=== PATIENT | female | born 1980 | race Caucasian/White ===

== ENCOUNTER 2016-12-12 06:02 | Emergency (ER) | payer BC, OTHER ==
--- NOTE | 2016-12-12 07:20 | ED NURSING NOTES ---
Clinical Report - Nurses [facility] [address] [place] [address] 12/12/2016 6:04 Patient: BERNADETTE SILVA TRIAGE Triage time 06:08. Acuity: LEVEL 3. Chief Complaint: (L flank pain). 06:16 12/12/16. Alert. No acute distress. PARADISE COMA SCORE: Paradise Coma Scale: 15- eyes open spontaneously (4); best verbal response- oriented x 4 (5); best motor response- obeys commands (6). --06:16 Kianna Meyers R.N. 06:15 12/12/16. BP: 94/66 taken on the left arm, while sitting. HR: 68. O2 saturation: 96%. Temp: 97.4 F. Pain level now: 11/26. --06:16 Kianna Meyers R.N. Weight: 61.2 kg stated. Height/Length: 62 inches Per Patient. BMI: 24.7. --06:15 Kianna Meyers R.N. Medications Deblitane Oral. --06:12 Kianna Meyers R.N. Escitalopram Oxalate Oral. --06:12 Kianna Meyers R.N. LORazepam Oral. --06:13 Kianna Meyers R.N. Allergies None. --06:13 Kianna Meyers R.N. History Arrived by private vehicle. Historian: patient. Primary physician (Dr Garay). This started today. ( Patient states she began experiencing urgency/frequency w/ urination yesterday, and was woken up around 4am by L sided flank pain.). ( frequency, urgency w/ urination). PAST MEDICAL HX: Immunizations: up-to-date. Last normal menstrual period was 3 weeks ago. Denies current . SOCIAL HX: Never smoker. Occasional alcohol use. No drug use. FALL RISK ASSESSMENT: Fall risk assessment completed. No fall risk identified. NUTRITIONAL RISK ASSESSMENT: The nutritional risk assessment revealed no deficiencies. FUNCTIONAL ASSESSMENT: Functional assessment: no impairments noted. LEARNING NEEDS ASSESSMENT: The learning needs assessment revealed no barriers. SKIN INTEGRITY ASSESSMENT: Skin integrity risk assessment completed. No skin integrity risk identified. --06:16 Kianna Meyers R.N. PROBLEMS: Elevated Cholesterol. Depression. Anxiety Reaction. --06:13 Kianna Meeyrs R.N. ADDITIONAL SURGERIES: Knee Surgery. --06:13 Kianna Meyers R.N. Interventions ID band on patient. To treatment room. --06:16 Kianna Meyers R.N. PHYSICAL ASSESSMENT 06:12. Ambulatory to room. GENERAL / NEURO / PSYCH: Alert. Oriented X 4. Appears in pain. HEENT: Mucous membranes are pink. RESPIRATORY: Respirations not labored. CVS: Capillary refill less than 2 seconds. GI / : Abdomen soft. Abdominal tenderness (L side tenderness). SKIN: Skin is warm and dry. --06:41 Kianna Meyers R.N. NURSING PROGRESS NOTES 06:22 12/12/2016 Site #1 started via IV in the right antecubital space with an 20g angiocath; one attempt. Blood drawn: rainbow set. Labeled in the presence of the patient and sent to the lab. Saline lock flushed with 10 mL saline. --06:37 Kianna Meyers R.N. 06:32 12/12/2016 Started bag #1 1000 mL IV Fluids IV NS (Saline); bolus of 500 mL over 30 minute(s) then at 125 mL/hr over 4 hour(s) via site #1 via IV pump. Allergies verified and confirmed 5 rights. IV patency established. IV site checked: no pain, redness, or swelling. IV flushed thoroughly pre- and post-medication administration. Completed per protocol. --06:37 Kianna Meyers R.N. 06:15. Patient gowned. Call light placed in reach. Side rails up x 1. Bed placed in lowest position. Brakes of bed on. Patient ready for evaluation- chart flagged and notification provided. --06:39 Kianna Meyers R.N. 07:17 12/12/16. Care transferred and report given (to GIO Baum and GIO Valdivia). --07:17 Kianna Meyers R.N. 07:33 12/12/2016 Levaquin (Levofloxacin) PO Tablets 750 mg given. Allergies verified and confirmed 5 rights. --07:33 Sarika Luna R.N. 07:33 12/12/2016 Zofran (Ondansetron HCl) IVP 4 mg given over 2 minute(s) via site #1. Allergies verified and confirmed 5 rights. IV patency established. IV site checked: no pain, redness, or swelling. IV flushed thoroughly pre- and post-medication administration. IVP given by RN. --07:33 Sarika Luna R.N. 07:34 12/12/2016 Dilaudid (HYDROmorphone HCl PF) IVP 0.5 mg given over 1 minute(s) via site #1. Allergies verified, confirmed 5 rights and sedative warning given to the patient. IV patency established. IV site checked: no pain, redness, or swelling. IV flushed thoroughly pre- and post-medication administration. IVP given by RN. --07:34 Sariak Luna R.N. 07:34 12/12/16. Reassessment after fluids administered. She is calm and resting quietly. Overall patient status is the same- she states feels the same. SKIN: Skin is warm and dry. --07:34 Sarika Luna R.N. 07:47 12/12/2016 IV Fluids IV NS Discontinued: bag #1. Total amount infused: 850 mL. IV patency established. IV site checked: no pain, redness, or swelling. IV flushed thoroughly. --07:47 Ankur Ledesma R.N. DISPOSITION / DISCHARGE 07:47 12/12/2016 Site #1 removed upon discharge. Catheter intact. Bandage applied. --07:47 Ankur Ledesma R.N. 07:48 12/12/16. Condition at departure: improved. The goals identified in the patient's plan of care were met. No learning barriers present. Discharge instructions provided and reviewed with the patient. Reviewed warnings. Reviewed medication(s). Treatments reviewed. Patient verbalized understanding. Written instructions provided in Tajik. The patient was discharged by the physician. She was discharged home and accompanied by incident handler. She left the Emergency Department ambulatory and via private vehicle. Kitchen Food Assembler driving. FALL RISK ASSESSMENT: Fall risk assessment completed. No fall risk identified. --07:48 Ankur Ledesma R.N. 07:46 12/12/16. BP: 100/68. HR: 70. RR: 14. O2 saturation: 99% on room air. Temp: 98.1 F (oral). --07:48 Ankur Ledesma R.N. 07:48 12/12/16. Departure time: 07:48. --07:48 Ankur Ledesma R.N. Locked/Released at 12/12/2016 7:50 by Ankur Ledesma R.N.
--- NOTE | 2016-12-12 07:20 | ED ORDER SUMMARY ---
..... Patient: BERNADETTE SILVA OrderSheet [facility] VisitID: [id number] [place] [address] 36y, F Registration Date/Time: 12/12/2016 ORDER SHEET Weight: 61.2 kg (stated) Allergies: None GENERAL ORDERS: CBC w Diff Urgent (06:07 12/12/2016 Piero CLEMENTE) (Ack 6:09 CHagerty ER Drilling Inspector) (Collected 6:29 RMarsden R.N.) (6:38 RMarsden R.N.) CMP Urgent (06:07 12/12/2016 Piero CLEMENTE) (Ack 6:09 Regla ER Drilling Inspector) (Collected 6:29 RMarsden R.N.) (6:54 RMarsden R.N.) UA-Culture if indicated Urgent (06:07 12/12/2016 Piero CLEMENTE) (Ack 6:09 Regla ER Drilling Inspector) (Collected 6:19 RMarsden R.N.) (6:29 RMarsden R.N.) Amylase Urgent (06:07 12/12/2016 Piero CLEMENTE) (Ack 6:09 Regla ER Drilling Inspector) (Collected 6:29 RMarsden R.N.) (6:54 RMarsden R.N.) Lipase Urgent (06:07 12/12/2016 Piero CLEMENTE) (Ack 6:09 Regla ER Drilling Inspector) (Collected 6:29 RMarsden R.N.) (6:54 RMarsden R.N.) Urine Urgent (06:07 12/12/2016 Piero CLEMENTE) (Ack 6:09 Regla ER Drilling Inspector) (Collected 6:29 RMarsden R.N.) (6:38 RMarsden R.N.) MEDICATION ORDERS: Levaquin PO 750 mg (NOW) (07:15 12/12/2016 Piero CLEMENTE) (Ack 7:17 Hodan R.N.) (7:33 Hodan R.N.) IV FLUIDS: IV NS : initial bolus 500 mL (1000 mL/hr), then 125 mL/hr for 4h (NOW); Urgent (06:07 12/12/2016 Piero CLEMENTE) (Ack 6:29 Olivia R.N.) (6:37 Olivia R.N.) Zofran IV 4 mg (NOW) (07:15 12/12/2016 Piero CLEMENTE) (Ack 7:17 Hodan R.N.) (7:33 Hodan R.N.) Dilaudid IV 0.5 mg (HIGH ALERT MEDICATION, NOW) (07:15 12/12/2016 Piero CLEMENTE) (Ack 7:17 Hodan R.N.) (7:34 Hodan R.N.) ORDER SHEET NOTES: [Electronically signed by Ankur Ledesma R.N. (07:50 12/12/2016)] [Electronically signed by Murray Nguyen MD (09:05 12/29/2016)] [Electronically locked/signed by Ankur Ledesma R.N. (07:50 12/12/2016)]
--- NOTE | 2016-12-12 07:20 | ED CLINICAL REPORT ---
Clinical Report - Physicians/Mid Levels [facility] [address] [place] [address] 12/12/2016 6:04 Patient: BERNADETTE SILVA Time Seen: 06:07. Arrived- By private vehicle. Historian- patient. HISTORY OF PRESENT ILLNESS Chief Complaint: FLANK PAIN. At its maximum, severity described as severe. When seen in the E.D., severity described as moderate. This started yesterday and is still present. It was gradual in onset and has been constant and waxing/waning. It is described as "pain" and it is described as located in the left abdomen and the left flank. The patient has had nausea. No vomiting or diarrhea. (she began experiencing urgency/frequency w/ urination yesterday, and was woken up around 4am by L sided flank pain.). REVIEW OF SYSTEMS Last normal menstrual period- 3 weeks ago. She has had chills and nausea and experienced sweats. No fever, calf pain, chest pain, cough or difficulty breathing. No pedal edema, palpitations, black stools, bloody stools or constipation. No diarrhea or vomiting. All systems otherwise negative, except as recorded above. SOCIAL HISTORY Never smoker. Occasional alcohol use. No drug use. FAMILY HISTORY Denies family medical history. ADDITIONAL NOTES The nursing notes have been reviewed. PHYSICAL EXAM Vital Signs: 12/12/2016 06:15 BP: 94/66. HR: 68. O2 saturation: 96%. Temp: 97.4 F. Pain level now: 11/26. Have been reviewed. Appearance: Alert. Eyes: Pupils equal, round and reactive to light. ENT: Pharynx normal. Neck: Normal inspection. Neck supple. CVS: Normal heart rate and rhythm. Heart sounds normal. Respiratory: No respiratory distress. Breath sounds normal. Abdomen: Soft and nontender. Bowel sounds normal. No organomegaly. No mass. Back: Normal inspection. Mild CVA tenderness on the left. Skin: Skin warm and dry. Normal skin color. Normal skin turgor. Extremities: Extremities exhibit normal ROM. No calf tenderness. No lower extremity edema. LABS, X-RAYS, AND EKG Laboratory Tests: UA-Culture if indicated: (TINY: 12/12/2016 06:17) ( [facility] 12/12/[facility] 06:33) Final results Test Result Flag Units (Reference) URINE COLOR YELLOW URINE APPEARANCE HAZY URINE GLUCOSE NEGATIVE (NEGATIVE) URINE BILIRUBIN NEGATIVE (NEGATIVE) URINE KETONE NEGATIVE (NEGATIVE) URINE SPECIFIC GRAVITY 1.020 (1.010-1.030) URINE PH 7.0 (5.0-8.0) URINE PROTEIN 1+ (NEGATIVE) URINE UROBILINOGEN 0.2 EU/dL (0.2-1.0) URINE NITRITE NEGATIVE (NEGATIVE) URINE BLOOD 3+ (NEGATIVE) URINE LEUK ESTERASE POSITIVE (NEGATIVE) URINE RBC 5-10 rbc/hpf (0-1) URINE WBC 15-25 wbc/hpf (0-1) URINE EPITHELIAL CELLS 1-3 EPI/hpf (0-5) URINE BACTERIA MODERATE (2+ TO 3+) (NONE SEEN) URINE COMMENT CULTURE INDICATED URINE CULTURES ARE SET-UP BASED ON THE FOLLOWING CRITERIA:POSITIVE NITRITEPOSITIVE LEUKOCYTE ESTERASEGREATER THAN 10 WHITE BLOOD CELLSMODERATE (2+) OR GREATER BACTERIA Urine: (TINY: 12/12/2016 06:17) ( [facility] 12/12/2016 06:29) Final results Test Result Flag Units (Reference) URINE NEGATIVE CBC w Diff: (TINY: 12/12/2016 06:26) ( [facility] 12/12/2016 06:35) Final results Test Result Flag Units (Reference) WHITE BLOOD COUNT 10.0 K/uL (4.5-11.5) RED BLOOD COUNT 4.54 M/uL (4.00-5.20) HEMOGLOBIN 13.6 gm/dL (12.0-16.0) HEMATOCRIT 40.9 % (36.0-46.0) MEAN CELL VOLUME 90 fL (80-100) MEAN CORPUSCULAR HGB 30 pg (26-34) MEAN CORPUSCULAR HGB CONC 33 g/dL (31-37) RED CELL DISTRIBUTION WIDTH 13.9 % (11.6-14.8) PLATELET COUNT 223 K/uL (150-400) NEUTROPHIL % 67.7 % (50-75) LYMPH % 24.3 L % (25-40) MONO % 6.1 % (3-14) EOSINOPHIL % 1.5 % (0-4) BASOPHIL % 0.4 % (0-2) CMP: (TINY: 12/12/2016 06:26) ( MsgRcvd 12/12/2016 06:47) Final results Test Result Flag Units (Reference) GLUCOSE 90 mg/dL (70-110) BUN 16 mg/dL (7-18) CREATININE 0.9 mg/dL (0.6-1.3) Estimated GFR >60 mL/min Estimated GFR- >60 mL/min Note: Persistent reduction over 3 months in eGFR<60 mL/min/1.73 m2 defines CKD. Patients with eGFR values>=60 mL/min/1.73 m2 may also have CKD if evidence ofpersistent proteinuria. Additional information may be foundat www.kidney.org. SODIUM 140 mmol/L (136-145) POTASSIUM 4.2 mmol/L (3.5-5.1) CHLORIDE 105 mmol/L (98-107) CARBON DIOXIDE 25 mmol/L (21-32) CALCIUM 8.6 mg/dL (8.5-10.1) TOTAL PROTEIN 7.3 g/dL (6.4-8.2) ALBUMIN 3.7 g/dL (3.3-5.0) BILIRUBIN, TOTAL 0.3 mg/dL (0.0-1.0) ALKALINE PHOSPHATASE 57 U/L (46-116) AST (SGOT) 8 L U/L (15-37) ALT (SGPT) 17 U/L (12-78) LIPASE 177 U/L (73-393) AMYLASE 40 U/L (25-115) . PROGRESS AND PROCEDURES Course of Care: Patient is stable. Patient/family counseled. Old medical records ordered. Old records unavailable. Disposition: Discharged. Condition: stable. CLINICAL IMPRESSION Acute pyelonephritis INSTRUCTIONS No driving or operating machinery while taking medication. Sedative medication was given during your visit. Drink plenty of fluids. No alcohol. Warnings: Further evaluation is necessary. GENERAL WARNINGS: Return or contact your physician immediately if your condition worsens or changes unexpectedly, if not improving as expected, or if other problems arise. Your Current Medications: CONTINUE TAKING THE FOLLOWING MEDICATIONS: Deblitane Oral. Escitalopram Oxalate Oral. LORazepam Oral. Prescription Medications: Hydrocodone/APAP 5mg/325mg: take 1 to 2 orally every 6 hours as needed for pain. Dispense fifteen (15). No refills. Zofran 4 mg: Take 1 orally every six hours as needed for nausea/vomiting. Dispense ten (10). No refills. Substitution is permissible. Cipro 500 mg: take 1 tab orally every 12 hours for 10 days. Dispense twenty (20). No refills. Substitution is permissible. (18 pills to finish the course started in the ER. Start this in the morning on December 13 as discussed) Follow-up: Follow up with your doctor Dr Garay in five days. Call for the next available appointment. Understanding of the discharge instructions verbalized by patient. (Electronically signed by Murray Nguyen MD 12/29/2016 9:05)
--- NOTE | 2016-12-12 07:20 | ED CLINICAL REPORT ---
Clinical Report - Physicians/Mid Levels [facility] [address] [place] [address] 12/12/2016 6:04 Patient: BERNADETTE SILVA Time Seen: 06:07. Arrived- By private vehicle. Historian- patient. HISTORY OF PRESENT ILLNESS Chief Complaint: FLANK PAIN. At its maximum, severity described as severe. When seen in the E.D., severity described as moderate. This started yesterday and is still present. It was gradual in onset and has been constant and waxing/waning. It is described as "pain" and it is described as located in the left abdomen and the left flank. The patient has had nausea. No vomiting or diarrhea. (she began experiencing urgency/frequency w/ urination yesterday, and was woken up around 4am by L sided flank pain.). REVIEW OF SYSTEMS Last normal menstrual period- 3 weeks ago. She has had chills and nausea and experienced sweats. No fever, calf pain, chest pain, cough or difficulty breathing. No pedal edema, palpitations, black stools, bloody stools or constipation. No diarrhea or vomiting. All systems otherwise negative, except as recorded above. SOCIAL HISTORY Never smoker. Occasional alcohol use. No drug use. FAMILY HISTORY Denies family medical history. ADDITIONAL NOTES The nursing notes have been reviewed. PHYSICAL EXAM Vital Signs: 12/12/2016 06:15 BP: 94/66. HR: 68. O2 saturation: 96%. Temp: 97.4 F. Pain level now: 11/26. Have been reviewed. Appearance: Alert. Eyes: Pupils equal, round and reactive to light. ENT: Pharynx normal. Neck: Normal inspection. Neck supple. CVS: Normal heart rate and rhythm. Heart sounds normal. Respiratory: No respiratory distress. Breath sounds normal. Abdomen: Soft and nontender. Bowel sounds normal. No organomegaly. No mass. Back: Normal inspection. Mild CVA tenderness on the left. Skin: Skin warm and dry. Normal skin color. Normal skin turgor. Extremities: Extremities exhibit normal ROM. No calf tenderness. No lower extremity edema. LABS, X-RAYS, AND EKG Laboratory Tests: UA-Culture if indicated: (TINY: 12/12/2016 06:17) ( [facility] 12/12/2016 06:33) Final results Test Result Flag Units (Reference) URINE COLOR YELLOW URINE APPEARANCE HAZY URINE GLUCOSE NEGATIVE (NEGATIVE) URINE BILIRUBIN NEGATIVE (NEGATIVE) URINE KETONE NEGATIVE (NEGATIVE) URINE SPECIFIC GRAVITY 1.020 (1.010-1.030) URINE PH 7.0 (5.0-8.0) URINE PROTEIN 1+ (NEGATIVE) URINE UROBILINOGEN 0.2 EU/dL (0.2-1.0) URINE NITRITE NEGATIVE (NEGATIVE) URINE BLOOD 3+ (NEGATIVE) URINE LEUK ESTERASE POSITIVE (NEGATIVE) URINE RBC 5-10 rbc/hpf (0-1) URINE WBC 15-25 wbc/hpf (0-1) URINE EPITHELIAL CELLS 1-3 EPI/hpf (0-5) URINE BACTERIA MODERATE (2+ TO 3+) (NONE SEEN) URINE COMMENT CULTURE INDICATED URINE CULTURES ARE SET-UP BASED ON THE FOLLOWING CRITERIA:POSITIVE NITRITEPOSITIVE LEUKOCYTE ESTERASEGREATER THAN 10 WHITE BLOOD CELLSMODERATE (2+) OR GREATER BACTERIA Urine: (TINY: 12/12/2016 06:17) ( [facility] 12/12/2016 06:29) Final results Test Result Flag Units (Reference) URINE NEGATIVE CBC w Diff: (TINY: 12/12/2016 06:26) ( [facility] 12/12/2016 06:35) Final results Test Result Flag Units (Reference) WHITE BLOOD COUNT 10.0 K/uL (4.5-11.5) RED BLOOD COUNT 4.54 M/uL (4.00-5.20) HEMOGLOBIN 13.6 gm/dL (12.0-16.0) HEMATOCRIT 40.9 % (36.0-46.0) MEAN CELL VOLUME 90 fL (80-100) MEAN CORPUSCULAR HGB 30 pg (26-34) MEAN CORPUSCULAR HGB CONC 33 g/dL (31-37) RED CELL DISTRIBUTION WIDTH 13.9 % (11.6-14.8) PLATELET COUNT 223 K/uL (150-400) NEUTROPHIL % 67.7 % (50-75) LYMPH % 24.3 L % (25-40) MONO % 6.1 % (3-14) EOSINOPHIL % 1.5 % (0-4) BASOPHIL % 0.4 % (0-2) CMP: (TINY: 12/12/2016 06:26) ( MsgRcvd 12/12/2016 06:47) Final results Test Result Flag Units (Reference) GLUCOSE 90 mg/dL (70-110) BUN 16 mg/dL (7-18) CREATININE 0.9 mg/dL (0.6-1.3) Estimated GFR >60 mL/min Estimated GFR- >60 mL/min Note: Persistent reduction over 3 months in eGFR<60 mL/min/1.73 m2 defines CKD. Patients with eGFR values>=60 mL/min/1.73 m2 may also have CKD if evidence ofpersistent proteinuria. Additional information may be foundat www.kidney.org. SODIUM 140 mmol/L (136-145) POTASSIUM 4.2 mmol/L (3.5-5.1) CHLORIDE 105 mmol/L (98-107) CARBON DIOXIDE 25 mmol/L (21-32) CALCIUM 8.6 mg/dL (8.5-10.1) TOTAL PROTEIN 7.3 g/dL (6.4-8.2) ALBUMIN 3.7 g/dL (3.3-5.0) BILIRUBIN, TOTAL 0.3 mg/dL (0.0-1.0) ALKALINE PHOSPHATASE 57 U/L (46-116) AST (SGOT) 8 L U/L (15-37) ALT (SGPT) 17 U/L (12-78) LIPASE 177 U/L (73-393) AMYLASE 40 U/L (25-115) . PROGRESS AND PROCEDURES Course of Care: Patient is stable. Patient/family counseled. Old medical records ordered. Old records unavailable. Disposition: Discharged. Condition: stable. CLINICAL IMPRESSION Acute pyelonephritis INSTRUCTIONS No driving or operating machinery while taking medication. Sedative medication was given during your visit. Drink plenty of fluids. No alcohol. Warnings: Further evaluation is necessary. GENERAL WARNINGS: Return or contact your physician immediately if your condition worsens or changes unexpectedly, if not improving as expected, or if other problems arise. Your Current Medications: CONTINUE TAKING THE FOLLOWING MEDICATIONS: Deblitane Oral. Escitalopram Oxalate Oral. LORazepam Oral. Prescription Medications: Hydrocodone/APAP 5mg/325mg: take 1 to 2 orally every 6 hours as needed for pain. Dispense fifteen (15). No refills. Zofran 4 mg: Take 1 orally every six hours as needed for nausea/vomiting. Dispense ten (10). No refills. Substitution is permissible. Cipro 500 mg: take 1 tab orally every 12 hours for 10 days. Dispense twenty (20). No refills. Substitution is permissible. (18 pills to finish the course started in the ER. Start this in the morning on December 13 as discussed) Follow-up: Follow up with your doctor Dr Garay in five days. Call for the next available appointment. Understanding of the discharge instructions verbalized by patient. (Electronically signed by Murray Nguyen MD 12/29/2016 9:05)
--- NOTE | 2016-12-12 07:20 | ED ORDER SUMMARY ---
..... Patient: BERNADETTE SILVA OrderSheet [facility] VisitID: [id number] [place] [address] 36y, F Registration Date/Time: 12/12/2016 ORDER SHEET Weight: 61.2 kg (stated) Allergies: None GENERAL ORDERS: CBC w Diff Urgent (06:07 12/12/2016 Piero CLEMENTE) (Ack 6:09 CHagerty ER Promotions Executive) (Collected 6:29 RMarsden R.N.) (6:38 RMarsden R.N.) CMP Urgent (06:07 12/12/2016 Piero CLEMENTE) (Ack 6:09 Regla ER Promotions Executive) (Collected 6:29 RMarsden R.N.) (6:54 RMarsden R.N.) UA-Culture if indicated Urgent (06:07 12/12/2016 Piero CLEMENTE) (Ack 6:09 Rgela ER Promotions Executive) (Collected 6:19 RMarsden R.N.) (6:29 RMarsden R.N.) Amylase Urgent (06:07 12/12/2016 Piero CLEMENTE) (Ack 6:09 Regla ER Promotions Executive) (Collected 6:29 RMarsden R.N.) (6:54 RMarsden R.N.) Lipase Urgent (06:07 12/12/2016 Piero CLEMENTE) (Ack 6:09 Regla ER Promotions Executive) (Collected 6:29 RMarsden R.N.) (6:54 RMarsden R.N.) Urine Urgent (06:07 12/12/2016 Piero CLEMENTE) (Ack 6:09 Regla ER Promotions Executive) (Collected 6:29 RMarsden R.N.) (6:38 RMarsden R.N.) MEDICATION ORDERS: Levaquin PO 750 mg (NOW) (07:15 12/12/2016 Piero CLEMENTE) (Ack 7:17 Hodan R.N.) (7:33 Hodan R.N.) IV FLUIDS: IV NS : initial bolus 500 mL (1000 mL/hr), then 125 mL/hr for 4h (NOW); Urgent (06:07 12/12/2016 Piero CLEMENTE) (Ack 6:29 Olivia R.N.) (6:37 Olivia R.N.) Zofran IV 4 mg (NOW) (07:15 12/12/2016 Piero CLEMENTE) (Ack 7:17 Hodan R.N.) (7:33 Hodan R.N.) Dilaudid IV 0.5 mg (HIGH ALERT MEDICATION, NOW) (07:15 12/12/2016 Piero CLEMENTE) (Ack 7:17 Hodan R.N.) (7:34 Hodan R.N.) ORDER SHEET NOTES: [Electronically signed by Ankur Ledesma R.N. (07:50 12/12/2016)] [Electronically signed by Murray Nguyen MD (09:05 12/29/2016)] [Electronically locked/signed by Ankur Ledesma R.N. (07:50 12/12/2016)]
--- NOTE | 2016-12-29 09:05 | ED MAR SUMMARY ---
..... Medication Administration Record [facility] [address] [place] [address] Patient: BERNADETTE SILVA Visit ID: [id number] 36y, F Weight: 61.2 kg Height/Length: 62 in BMI: 24.7 ALLERGIES: None Start 06:32 12/12/2016 Kianna Meyers R.N., Stop 07:47 12/12/2016 Ankur Ledesma R.N. Medication Administered: IV NS (SALINE), Dose: IV Fluids over 4 hour(s), Rate: 125 mL/hr, Bolus: 500 mL over 30 minute(s), Dispensed: 1000 mL bag, Site: #1 right AC. Medication Ordered: IV NS : initial bolus 500 mL (1000 mL/hr), then 125 mL/hr for 4h (NOW); Urgent. Given 07:33 12/12/2016 Sarika Luna R.N. Medication Administered: LEVAQUIN [PO] (LEVOFLOXACIN), Dose: 750 mg Tablets PO. Medication Ordered: Levaquin PO 750 mg (NOW). Given 07:33 12/12/2016 Sarika Luna R.N. Medication Administered: ZOFRAN [IVP] (ONDANSETRON HCL), Dose: 4 mg IVP over 2 minute(s), Site: #1 right AC. Medication Ordered: Zofran IV 4 mg (NOW). Given 07:34 12/12/2016 Sarika Luna R.N. Medication Administered: DILAUDID [IVP] (HYDROMORPHONE HCL PF), Dose: 0.5 mg IVP over 1 minute(s), Site: #1 right AC. Medication Ordered: Dilaudid IV 0.5 mg (HIGH ALERT MEDICATION, NOW).
--- NOTE | 2016-12-29 09:05 | ED MAR SUMMARY ---
..... Medication Administration Record [facility] [address] [place] [address] Patient: BERNADETTE SILVA Visit ID: [id number] 36y, F Weight: 61.2 kg Height/Length: 62 in BMI: 24.7 ALLERGIES: None Start 06:32 12/12/2016 Kianan Meyers R.N., Stop 07:47 12/12/2016 Ankur Ledesma R.N. Medication Administered: IV NS (SALINE), Dose: IV Fluids over 4 hour(s), Rate: 125 mL/hr, Bolus: 500 mL over 30 minute(s), Dispensed: 1000 mL bag, Site: #1 right AC. Medication Ordered: IV NS : initial bolus 500 mL (1000 mL/hr), then 125 mL/hr for 4h (NOW); Urgent. Given 07:33 12/12/2016 Sarika Luna R.N. Medication Administered: LEVAQUIN [PO] (LEVOFLOXACIN), Dose: 750 mg Tablets PO. Medication Ordered: Levaquin PO 750 mg (NOW). Given 07:33 12/12/2016 Sarika Luna R.N. Medication Administered: ZOFRAN [IVP] (ONDANSETRON HCL), Dose: 4 mg IVP over 2 minute(s), Site: #1 right AC. Medication Ordered: Zofran IV 4 mg (NOW). Given 07:34 12/12/2016 Sarika Luna R.N. Medication Administered: DILAUDID [IVP] (HYDROMORPHONE HCL PF), Dose: 0.5 mg IVP over 1 minute(s), Site: #1 right AC. Medication Ordered: Dilaudid IV 0.5 mg (HIGH ALERT MEDICATION, NOW).
--- NOTE | 2016-12-29 09:05 | ED DISCHARGE INSTRUCTIONS ---
Patient: BERNADETTE SILVA General Instructions [facility] VisitID: [id number] [place] [address] 36y, F Registration Date/Time: 12/12/2016 Acute pyelonephritis INSTRUCTIONS No driving or operating machinery while taking medication. Sedative medication was given during your visit. Drink plenty of fluids. No alcohol. Warnings: Further evaluation is necessary. GENERAL WARNINGS: Return or contact your physician immediately if your condition worsens or changes unexpectedly, if not improving as expected, or if other problems arise. Your Current Medications: CONTINUE TAKING THE FOLLOWING MEDICATIONS: Deblitane Oral. Escitalopram Oxalate Oral. LORazepam Oral. Prescription Medications: Hydrocodone/APAP 5mg/325mg: take 1 to 2 orally every 6 hours as needed for pain. Dispense fifteen (15). No refills. Zofran 4 mg: Take 1 orally every six hours as needed for nausea/vomiting. Dispense ten (10). No refills. Substitution is permissible. Cipro 500 mg: take 1 tab orally every 12 hours for 10 days. Dispense twenty (20). No refills. Substitution is permissible. (18 pills to finish the course started in the ER. Start this in the morning on Monday, December 13 as discussed) Follow-up: Follow up with your doctor Dr Garay in five days. Call for the next available appointment. Understanding of the discharge instructions verbalized by patient. ADDITIONAL INFORMATION Kidney Infection [Adult, Female] An infection of the kidney is also called "pyelonephritis". It usually starts as a bladder infection ("cystitis") which spreads to the kidneys. Pyelonephritis is more serious than a bladder infection. It can cause severe illness if not treated properly. The usual symptoms include an aching pain in the back, side or lower abdomen. Other symptoms may include fever, chills, nausea, vomiting, an urge to urinate and a burning sensation when passing urine. Home Care: Stay home from work or school. Rest in bed until your fever breaks and you are feeling better. Drink lots of fluid (at least 6-8 glasses a day, unless you must restrict fluids for other medical reasons). This will force the medicine into your urinary system and flush the bacteria out of your body. Avoid sexual intercourse until you have finished all of your medicine and your symptoms have gone away. Avoid caffeine, alcohol and spicy foods which may irritate the kidney and bladder. You may use acetaminophen (Tylenol) or ibuprofen (Motrin, Advil) to control pain, unless another pain medicine was prescribed. [NOTE: If you have chronic liver or kidney disease or ever had a stomach ulcer or GI bleeding, talk with your doctor before using these medicines.] Follow Up with your doctor or as advised by our staff for a repeat urine test in 10 days. This will ensure that your infection is fully cleared. [NOTE: If you had an X-ray or CT scan, it will be reviewed by a specialist. You will be notified of any new findings that may affect your care.] Get Prompt Medical Attention if any of the following occur: Fever over 100.4F (38.0C) after 48 hours of treatment No improvement by the third day of treatment Increasing back or abdominal pain Repeated vomiting or inability to take oral medicine Weakness, dizziness or fainting Hydrocodone Bitartrate, Acetaminophen Oral tablet What is this medicine? ACETAMINOPHEN; HYDROCODONE (a set a KYRA corry fen; evelia droe KOE done) is a pain reliever. It is used to treat mild to moderate pain. How should I use this medicine? Take this medicine by mouth. Swallow it with a full glass of water. Follow the directions on the prescription label. If the medicine upsets your stomach, take the medicine with food or milk. Do not take more than you are told to take. Talk to your segmental paver installer regarding the use of this medicine in children. This medicine is not approved for use in children. What side effects may I notice from receiving this medicine? Side effects that you should report to your doctor or health technical healthcare consultant as soon as possible: allergic reactions like skin rash, itching or hives, swelling of the face, lips, or tongue breathing problems confusion feeling faint or lightheaded, falls stomach pain yellowing of the eyes or skin Side effects that usually do not require medical attention (report to your doctor or health technical healthcare consultant if they continue or are bothersome): nausea, vomiting stomach upset What may interact with this medicine? alcohol antihistamines isoniazid medicines for depression, anxiety, or psychotic disturbances medicines for sleep muscle relaxants naltrexone narcotic medicines (opiates) for pain phenobarbital ritonavir tramadol What if I miss a dose? If you miss a dose, take it as soon as you can. If it is almost time for your next dose, take only that dose. Do not take double or extra doses. Where should I keep my medicine? Keep out of the reach of children. This medicine can be abused. Keep your medicine in a safe place to protect it from theft. Do not share this medicine with anyone. Selling or giving away this medicine is dangerous and against the law. Store at room temperature between 15 and 30 degrees C (59 and 86 degrees F). Protect from light. Keep container tightly closed. Throw away any unused medicine after the expiration date. Discard unused medicine and used packaging carefully. Pets and children can be harmed if they find used or lost packages. What should I tell my health care provider before I take this medicine? They need to know if you have any of these conditions: brain tumor Crohn's disease, inflammatory bowel disease, or ulcerative colitis drink more than 3 alcohol-containing drinks per day drug abuse or addiction head injury heart or circulation problems kidney disease or problems going to the bathroom liver disease lung disease, asthma, or breathing problems an unusual or allergic reaction to acetaminophen, hydrocodone, other opioid analgesics, other medicines, foods, dyes, or preservatives or trying to get breast-feeding What should I watch for while using this medicine? Tell your doctor or health technical healthcare consultant if your pain does not go away, if it gets worse, or if you have new or a different type of pain. You may develop tolerance to the medicine. Tolerance means that you will need a higher dose of the medicine for pain relief. Tolerance is normal and is expected if you take the medicine for a long time. Do not suddenly stop taking your medicine because you may develop a severe reaction. Your body becomes used to the medicine. This does NOT mean you are addicted. Addiction is a behavior related to getting and using a drug for a non-medical reason. If you have pain, you have a medical reason to take pain medicine. Your doctor will tell you how much medicine to take. If your doctor wants you to stop the medicine, the dose will be slowly lowered over time to avoid any side effects. You may get drowsy or dizzy when you first start taking the medicine or change doses. Do not drive, use machinery, or do anything that may be dangerous until you know how the medicine affects you. Stand or sit up slowly. There are different types of narcotic medicines (opiates) for pain. If you take more than one type at the same time, you may have more side effects. Give your health care provider a list of all medicines you use. Your doctor will tell you how much medicine to take. Do not take more medicine than directed. Call emergency for help if you have problems breathing. The medicine will cause constipation. Try to have a bowel movement at least every 2 to 3 days. If you do not have a bowel movement for 3 days, call your doctor or health technical healthcare consultant. Too much acetaminophen can be very dangerous. Do not take Tylenol (acetaminophen) or medicines that contain acetaminophen with this medicine. Many non-prescription medicines contain acetaminophen. Always read the labels carefully. Ondansetron Oral disintegrating tablet What is this medicine? ONDANSETRON (on CHARLES se woodrow) is used to treat nausea and vomiting caused by chemotherapy. It is also used to prevent or treat nausea and vomiting after surgery. How should I use this medicine? These tablets are made to dissolve in the mouth. Do not try to push the tablet through the foil backing. With dry hands, peel away the foil backing and gently remove the tablet. Place the tablet in the mouth and allow it to dissolve, then swallow. While you may take these tablets with water, it is not necessary to do so. Talk to your segmental paver installer regarding the use of this medicine in children. Special care may be needed. What side effects may I notice from receiving this medicine? Side effects that you should report to your doctor or health technical healthcare consultant as soon as possible: allergic reactions like skin rash, itching or hives, swelling of the face, lips, or tongue breathing problems dizziness fast or irregular heartbeat feeling faint or lightheaded, falls fever and chills swelling of the hands and feet tightness in the chest Side effects that usually do not require medical attention (report to your doctor or health technical healthcare consultant if they continue or are bothersome): constipation or diarrhea headache What may interact with this medicine? Do not take this medicine with any of the following medications: -apomorphine -cisapride -dofetilide -dronedarone -pimozide -thioridazine -ziprasidone This medicine may also interact with the following medications: -carbamazepine -phenytoin -rifampicin -tramadol -other medicines that prolong the QT interval (cause an abnormal heart rhythm) What if I miss a dose? If you miss a dose, take it as soon as you can. If it is almost time for your next dose, take only that dose. Do not take double or extra doses. Where should I keep my medicine? Keep out of the reach of children. Store between 2 and 30 degrees C (36 and 86 degrees F). Throw away any unused medicine after the expiration date. What should I tell my health care provider before I take this medicine? They need to know if you have any of these conditions: heart disease history of irregular heartbeat liver disease low levels of magnesium or potassium in the blood an unusual or allergic reaction to ondansetron, granisetron, other medicines, foods, dyes, or preservatives or trying to get breast-feeding What should I watch for while using this medicine? Check with your doctor or health technical healthcare consultant as soon as you can if you have any sign of an allergic reaction. You have been given the following additional information: Pyelonephritis, Female (Adult) Hydrocodone Bitartrate, Acetaminophen Oral tablet Ondansetron Oral disintegrating tablet No driving or operating machinery while taking medication. Sedative medication was given during your visit. (Electronically signed by Murray Nguyen MD 12/29/2016 9:05)
--- NOTE | 2016-12-29 09:05 | ED MED RECONCILIATION SUMMARY ---
Patient: BERNADETTE SILVA Medication Reconciliation Report [facility] VisitID: [id number] [place] [address] 36y, F Registration Date/Time: 12/12/2016 Weight: 61.2 kg Height/Length: 62 in. BMI: 24.7 ALLERGIES: None The patient's Home Medications are listed below: CONTINUE TAKING THE FOLLOWING MEDICATIONS: Deblitane Oral Escitalopram Oxalate Oral LORazepam Oral The source(s) of the original Home Medication information: Not obtained. The following Medications were given to the patient in the Emergency Department: IV NS IV Fluids bolus 500 mL over 30 minute(s), then 125 mL/hr, administered: 12/12/2016 6:32:00 AM Levaquin [PO] PO 750 mg, administered: 12/12/2016 7:33:00 AM Zofran [IVP] IVP 4 mg, administered: 12/12/2016 7:33:00 AM Dilaudid [IVP] IVP 0.5 mg, administered: 12/12/2016 7:34:00 AM The following Medications were prescribed to the patient: Hydrocodone/APAP 5mg/325mg: take 1 to 2 orally every 6 hours as needed for pain. Dispense fifteen (15). No refills. -- Murray Nguyen MD Zofran 4 mg: Take 1 orally every six hours as needed for nausea/vomiting. Dispense ten (10). No refills. Substitution is permissible. -- Murray Nguyen MD Cipro 500 mg: take 1 tab orally every 12 hours for 10 days. Dispense twenty (20). No refills. Substitution is permissible.(18 pills to finish the course started in the ER. Start this in the morning on December 13 as discussed) -- Murray Nguyen MD
--- NOTE | 2016-12-29 09:05 | ED MED RECONCILIATION SUMMARY ---
Patient: BERNADETTE SILVA Medication Reconciliation Report [facility] VisitID: [id number] [place] [address] 36y, F Registration Date/Time: 12/12/2016 Weight: 61.2 kg Height/Length: 62 in. BMI: 24.7 ALLERGIES: None The patient's Home Medications are listed below: CONTINUE TAKING THE FOLLOWING MEDICATIONS: Deblitane Oral Escitalopram Oxalate Oral LORazepam Oral The source(s) of the original Home Medication information: Not obtained. The following Medications were given to the patient in the Emergency Department: IV NS IV Fluids bolus 500 mL over 30 minute(s), then 125 mL/hr, administered: 12/12/2016 6:32:00 AM Levaquin [PO] PO 750 mg, administered: 12/12/2016 7:33:00 AM Zofran [IVP] IVP 4 mg, administered: 12/12/2016 7:33:00 AM Dilaudid [IVP] IVP 0.5 mg, administered: 12/12/2016 7:34:00 AM The following Medications were prescribed to the patient: Hydrocodone/APAP 5mg/325mg: take 1 to 2 orally every 6 hours as needed for pain. Dispense fifteen (15). No refills. -- Murray Nguyen MD Zofran 4 mg: Take 1 orally every six hours as needed for nausea/vomiting. Dispense ten (10). No refills. Substitution is permissible. -- Murray Nguyen MD Cipro 500 mg: take 1 tab orally every 12 hours for 10 days. Dispense twenty (20). No refills. Substitution is permissible.(18 pills to finish the course started in the ER. Start this in the morning on December 13 as discussed) -- Murray Nguyen MD
== END 2016-12-12 07:48 | disposition home or self-care (01) ==
LOC: ED SRH 06:02
DX: N10 Acute pyelonephritis (principal)
CPT/HCPCS: 90004; 90100; 90469; 92235; 92530; 93070; 95059